=== PATIENT | female | born 1945 | race Caucasian/White ===

== ENCOUNTER 2017-12-16 08:05 | Day surgery (SDC) | payer OTHER ==
[2017-12-16 10:23] VITALS: BMI 20.9
[2017-12-16] MEDS ORDERED: PROPOFOL 20 ML ONE (10:26)
[2017-12-16] MEDS ORDERED: LIDOCAINE HCL/PF 2% SDV 5ML VIAL ONE (10:26)
[2017-12-16 15:36] VITALS: BP 130/80; PULSE 60; TEMP 97.8
--- NOTE | 2017-12-17 13:55 | PATH ---
Surgical Pathology Report Patient Name: JEANNIE AVALOS [facility]. Rec. #: [id number] /Age/Gender: 1945 (Age: 72) / F Account: [id number] Location: ASU-ENDOSCOPY Taken: 12/16/2017 Received: 12/16/2017 Reported: 12/17/2017 Physicians: Alcon Solis M.D. Specimen(s) Received BX BODY OF STOMACH Clinical History Epigastric pain, anemia Postoperative diagnosis: Gastritis Final Diagnosis STOMACH, BODY, BIOPSY: GASTRIC BODY MUCOSA WITH MILD CHRONIC GASTRITIS. IMMUNOHISTOCHEMICAL STAIN FOR H. PYLORI IS NEGATIVE. Electronically Signed Myra Garcia M.D. Gross Description Received in formalin, labeled "biopsy body of stomach" are 2 garnica, irregular portions of soft tissue measuring 0.2 and 0.5 cm. in greatest dimension. The specimens are submitted in toto in one cassette. /12/16/2017 saudi/12/16/2017
== END 2017-12-16 12:10 | disposition home or self-care (01) ==
LOC: JASU-ENDO 08:05
PROVIDERS: ATTEND Internal Medicine Gastroenterology
PROC: 0DB68ZX Excision of Stomach, Via Natural or Artificial Opening Endoscopic, Diagnostic (ICD-10-PCS; principal; 2017-12-16 10:30)
DX: K29.50 Unspecified chronic gastritis without bleeding (principal); R10.13 Epigastric pain; R68.81 Early satiety; I10 Essential (primary) hypertension; Z86.73 Personal history of transient ischemic attack (TIA), and cerebral infarction without residual deficits
CPT/HCPCS: 88305-TC; 88342-TC

== ENCOUNTER 2018-03-23 10:28 | Day surgery (SDC) | payer OTHER ==
[2018-03-22 17:44] VITALS: BMI 19.8
[~2018-03-23 10:28] MED LIST: ACETAMINOPHEN 325 MG TABLET (FP) PO PRN
[2018-03-23] MEDS ORDERED: PHENYLEPHRINE 2.5% OPHTH SOLN 15 ML BOTTLE ONE (11:13)
[2018-03-23] MEDS ORDERED: TROPICAMIDE 1% OPHTH SOLN 15 ML BOTTLE ONE (11:13)
[2018-03-23] MEDS ORDERED: CYCLOPENTOLATE HCL 1% OPHTH SOLN 2 ML BOTTLE ONE (11:13)
[2018-03-23] MEDS ORDERED: OFLOXACIN 0.3% OPHTHALMIC SOLUTION 5 ML BOTTLE ONE (11:13)
[2018-03-23] MEDS ORDERED: KETOROLAC TROMETHAMINE 0.5% EYE DROP 1 DROP DROPS ONE (11:13)
[2018-03-23] MEDS: OFLOXACIN 0.3% OPHTHALMIC SOLUTION 5 ML BOTTLE OP SCH ×3 (11:25→11:46)
[2018-03-23] MEDS: KETOROLAC TROMETHAMINE 0.5% EYE DROP 1 DROP DROPS OP SCH ×3 (11:25→11:46)
[2018-03-23] MEDS: CYCLOPENTOLATE HCL 1% OPHTH SOLN 2 ML BOTTLE OP SCH ×2 (11:25→11:35)
[2018-03-23] MEDS: TROPICAMIDE 1% OPHTH SOLN 15 ML BOTTLE OP SCH ×3 (11:25→11:47)
[2018-03-23] MEDS: PHENYLEPHRINE 2.5% OPHTH SOLN 15 ML BOTTLE OP SCH ×3 (11:25→11:47)
[2018-03-23 11:55] VITALS: TEMP 97.8
[2018-03-23] MEDS ORDERED: PROPOFOL 20 ML ONE (12:32)
[2018-03-23] MEDS ORDERED: LIDOCAINE HCL/PF 2% SDV 5ML VIAL ONE (12:33)
[2018-03-23] MEDS ORDERED: BUPIVACAINE HCL/PF 0.75% 10 ML VIAL NR ONE (12:43)
[2018-03-23] MEDS ORDERED: LIDOCAINE HCL/PF 2% SDV 5ML VIAL INF ONE (12:43)
[2018-03-23] MEDS ORDERED: POVIDONE-IODINE 5% OPHTHALMIC PREP 30 ML SOLUTION OS ONE (12:45)
[2018-03-23] MEDS ORDERED: LIDOCAINE HCL 1% PRESERVATIVE FREE - 30ML VIAL IO ONE (12:51)
[2018-03-23] MEDS ORDERED: BSS (NA/CA/MG/K) BALANCED SALT SOLUTION OPHTH SOLN 15 ML BOTTLE OS ONE (12:51)
[2018-03-23] MEDS ORDERED: CHONDROITIN SU A/HYALUR SOD 1 KIT IO ONE (12:51)
[2018-03-23] MEDS ORDERED: EPINEPHrine/PF 1 MG/1 ML (1:1,000) AMPULE SQ ONE (12:57)
[2018-03-23 14:38] VITALS: BP 122/77; PULSE 72
--- NOTE | 2018-03-23 22:24 | SPEC ---
DATE OF OPERATION: OPERATION: Phacoemulsification with posterior chamber intraocular lens implantation, left eye, lens used SN60WF, 23.5 Diopter power, Serial No. [id number]. PREOPERATIVE DIAGNOSIS: Cataract left eye. POSTOPERATIVE DIAGNOSIS: Cataract left eye. SURGEON: Bernardo Erickson M.D. ANESTHESIA: Peribulbar/Modified Van Lint/MAC. COMPLICATIONS: None. PROCEDURE: The patient was brought to the operating room and correctly identified along with the operative site and a correct intraocular lens lazar. The patient was then given a peribulbar block under sedation with 5 mL of a 1:1 mixture of 2% Lidocaine and 0.5% Bupivacaine. Two to 3 mL of the same mixture was given as a modified Van Lint block. The eye was then prepped and draped in the usual sterile fashion including 5% Betadine solution in the conjunctival sac and an eyelid drape. An eyelid speculum was then placed into the eye. A paracentesis port was created. Viscoelastic was injected to inflate the anterior chamber. A temporal clear corneal wound was created. A continuous circular capsulorrhexis was performed. The nucleus was then hydro-dissected and removed phacoemulsification via the [id number] approach. The remaining cortical material was irrigated and aspirated from the eye. Viscoelastic was injected to inflate the capsular bag. The lens was injected into the capsular bag. Viscoelastic was then irrigated and aspirated from the eye. The intraocular lens was noted to be well centered and covered by the anterior capsular border. All wounds were found to be watertight. Topical Vancomycin was given. The eye patch and shield were placed. The patient was discharged from the operating room in stable condition. Sara BLUM/[id number]
== END 2018-03-23 14:55 | disposition home or self-care (01) ==
LOC: JASU-SURG 10:28
PROVIDERS: ATTEND Ophthalmology
PROC: 08RK3JZ Replacement of Left Lens with Synthetic Substitute, Percutaneous Approach (ICD-10-PCS; principal; 2018-03-23 12:00)
DX: H26.9 Unspecified cataract (principal)

== ENCOUNTER 2018-04-06 08:55 | Day surgery (SDC) | payer OTHER ==
[2018-04-05 10:21] VITALS: BMI 19.8
[~2018-04-06 08:55] MED LIST changes: +EPINEPHrine/PF 1 MG/1 ML (1:1,000) AMPULE SQ ONE
[2018-04-06] MEDS ORDERED: PHENYLEPHRINE 2.5% OPHTH SOLN 15 ML BOTTLE ONE (09:14)
[2018-04-06] MEDS ORDERED: OFLOXACIN 0.3% OPHTHALMIC SOLUTION 5 ML BOTTLE ONE (09:14)
[2018-04-06] MEDS ORDERED: TROPICAMIDE 1% OPHTH SOLN 15 ML BOTTLE ONE (09:14)
[2018-04-06] MEDS ORDERED: CYCLOPENTOLATE HCL 1% OPHTH SOLN 2 ML BOTTLE ONE (09:14)
[2018-04-06] MEDS ORDERED: KETOROLAC TROMETHAMINE 0.5% EYE DROP 1 DROP DROPS ONE (09:14)
[2018-04-06] MEDS: KETOROLAC TROMETHAMINE 0.5% EYE DROP 1 DROP DROPS OP SCH ×3 (09:15→09:25)
[2018-04-06] MEDS: PHENYLEPHRINE 2.5% OPHTH SOLN 15 ML BOTTLE OP SCH ×3 (09:15→09:25)
[2018-04-06] MEDS: OFLOXACIN 0.3% OPHTHALMIC SOLUTION 5 ML BOTTLE OP SCH ×3 (09:15→09:25)
[2018-04-06] MEDS: TROPICAMIDE 1% OPHTH SOLN 15 ML BOTTLE OP SCH ×3 (09:15→09:25)
[2018-04-06] MEDS: CYCLOPENTOLATE HCL 1% OPHTH SOLN 2 ML BOTTLE OP SCH ×3 (09:15→09:25)
[2018-04-06 09:32] VITALS: TEMP 97.7
[2018-04-06] MEDS ORDERED: PROPOFOL 20 ML ONE (10:13)
[2018-04-06] MEDS ORDERED: BUPIVACAINE HCL/PF 0.75% 10 ML VIAL NR ONE (10:16)
[2018-04-06] MEDS ORDERED: LIDOCAINE HCL/PF 2% SDV 5ML VIAL INF ONE (10:16)
[2018-04-06] MEDS ORDERED: POVIDONE-IODINE 5% OPHTHALMIC PREP 30 ML SOLUTION OD ONE (10:19)
[2018-04-06] MEDS ORDERED: LIDOCAINE HCL 1% PRESERVATIVE FREE - 30ML VIAL IO ONE (10:30)
[2018-04-06] MEDS ORDERED: BSS (NA/CA/MG/K) BALANCED SALT SOLUTION OPHTH SOLN 15 ML BOTTLE OD ONE (10:30)
[2018-04-06] MEDS ORDERED: CHONDROITIN SU A/HYALUR SOD 1 KIT IO ONE (10:30)
[2018-04-06] MEDS ORDERED: GLYCOPYRROLATE 0.2 MG/1 ML VIAL ONE (10:35)
[2018-04-06] MEDS ORDERED: EPINEPHrine/PF 1 MG/1 ML (1:1,000) AMPULE SQ ONE (10:38)
--- NOTE | 2018-04-06 12:31 | OP ---
DATE OF OPERATION: 04/06/2018 PREOPERATIVE DIAGNOSIS: Cataract, right eye. POSTOPERATIVE DIAGNOSIS: Cataract, right eye. PROCEDURE: Phacoemulsification of right cataract with posterior chamber intraocular lens implantation, the lens used SN60WF, 24.0 diopter power, serial No. [id number]. SURGEON: Kaushik Danielle M.D. ANESTHESIA: Topical MAC. COMPLICATIONS: None. DESCRIPTION OF PROCEDURE: The patient was brought to the operating room and correctly identified along with the operative site and the correct intraocular lens lazar. The patient was then prepped and draped in the usual sterile fashion including 5% Betadine solution in the conjunctival sac and an eyelid drape. An eyelid speculum was then placed in the eye. A paracentesis port was created and approximately 0.5 mL of preservative free Lidocaine was then injected into the eye. Viscoelastic was then injected to inflate the anterior chamber. A temporal clear corneal wound was created. A continuous circular capsulorrhexis was performed. The nucleus was then hydrodissected with BSS and removed with phacoemulsification. The remaining cortical material was irrigated and aspirated. Viscoelastic was injected to inflate the capsular bag and the intraocular lens was then implanted into the capsular bag. The remaining Viscoelastic was irrigated and aspirated from the eye. The IOL was noted to be well centered and completely covered by the anterior capsulorrhexis. Topical vancomycin was placed and the eye patched and shielded. All wounds were tested and found to be watertight. No suture was placed. The eye was then shielded. The patient was then discharged from the operating room in stable condition. KAUSHIK DANIELLE M.D. HL/[id number]
[2018-04-06 14:04] VITALS: BP 104/71; PULSE 72
== END 2018-04-06 14:07 | disposition home or self-care (01) ==
LOC: JASU-SURG 08:55
PROVIDERS: ATTEND Ophthalmology
PROC: 08RJ3JZ Replacement of Right Lens with Synthetic Substitute, Percutaneous Approach (ICD-10-PCS; principal; 2018-04-06 10:00)
DX: H26.9 Unspecified cataract (principal)

== ENCOUNTER 2018-06-22 10:50 | Day surgery (SDC) | payer OTHER ==
[2018-06-21 12:25] VITALS: BMI 19.8
[~2018-06-22 10:50] MED LIST changes: -EPINEPHrine/PF 1 MG/1 ML (1:1,000) AMPULE SQ ONE; +PILOCARPINE 1% OPHTHALMIC SOLUTION 15 ML BOTTLE OP ONE
[2018-06-22] MEDS ORDERED: OFLOXACIN 0.3% OPHTHALMIC SOLUTION 5 ML BOTTLE ONE (11:11)
[2018-06-22] MEDS: OFLOXACIN 0.3% OPHTHALMIC SOLUTION 5 ML BOTTLE OP SCH ×3 (11:20→11:30)
[2018-06-22] MEDS ORDERED: TETRACAINE 0.5% OPHTH SOLN 2 ML BOTTLE OD ONE (12:11)
[2018-06-22] MEDS ORDERED: POVIDONE-IODINE 5% OPHTHALMIC PREP 30 ML SOLUTION OD ONE (12:13)
[2018-06-22] MEDS ORDERED: LIDOCAINE HCL 1% PRESERVATIVE FREE - 30ML VIAL IO ONE (12:21)
[2018-06-22] MEDS ORDERED: ACETYLCHOLINE 1:100 INTRA-OCUL 20 MG/2 ML KIT IO ONE (12:21)
[2018-06-22] MEDS ORDERED: BSS (NA/CA/MG/K) BALANCED SALT SOLUTION OPHTH SOLN 15 ML BOTTLE OD ONE (12:21)
[2018-06-22] MEDS ORDERED: ONDANSETRON 4 MG/2 ML VIAL IVPUSH PRN (12:50)
[2018-06-22 13:12] VITALS: TEMP 97.6
--- NOTE | 2018-06-22 13:15 | OP ---
DATE OF OPERATION: DATE OF DICTATION: 06/22/2018 PREOPERATIVE DIAGNOSIS: Retained lens fragment, right eye. POSTOPERATIVE DIAGNOSIS: Retained lens fragment, right eye. PROCEDURE: Removal of lens fragment from right eye. PROCEDURE: Patient was brought in the operating room and correctly identified along with the operative site. She was then prepped and draped in the usual sterile fashion including 5% Betadine solution in the conjunctival sac and eyelid drape. An eyelid speculum was then placed into the right eye. Two paracentesis ports were made and 0.5 ml of intracameral lidocaine 1% preservative free was given and as well Miochol. The eye was inspected and a lens fragment was noted. It was in the inferior angle of the eye at approximately 7 o'clock. Using the bimanual irrigation/aspiration the aspiration port was brought to the lens and a fragment was removed. It was then vacuumed and crushed using the irrigation port. The eye was again inspected and there appeared to be a 2nd fragment in the same location. Once again the aspiration port was brought to this location and in fact a 2nd piece was noted and removed in the same fashion as the 1st piece. Once again aspiration of the lens material was performed in the same fashion. The eye was again inspected and no further lens fragments were noted. The 2 paracentesis ports were stromal hydrated. However, the patient began to cough, english and move and shallow her anterior chamber. The decision was then made to place two 10-0 nylon sutures in both paracentesis ports. At the end of the procedure the anterior chamber was noted to be stable. No leakage was noted from either paracentesis port. No further fragment noted. Topical vancomycin and Betadine given, the eye patched and shielded and the patient discharged from the operating room in a stable condition. KAUSHIK DANIELLE M.D. [id number] MTDD
[2018-06-22 14:56] VITALS: BP 145/89; PULSE 55
== END 2018-06-22 15:04 | disposition home or self-care (01) ==
LOC: JASU-SURG 10:50
PROVIDERS: ATTEND Ophthalmology
PROC: 08DJ3ZZ Extraction of Right Lens, Percutaneous Approach (ICD-10-PCS; principal; 2018-06-22 12:00)
DX: H59.021 Cataract (lens) fragments in eye following cataract surgery, right eye (principal)
CPT/HCPCS: 94760